=== PATIENT | male | born 1950 | race Caucasian/White ===

== ENCOUNTER 2021-10-16 09:05 | Emergency (ER) | payer MEDICARE ==
[2021-10-16] MEDS ORDERED: Dexamethasone 10 MG/ML VIAL ONE (09:26)
== END 2021-10-16 09:28 | disposition home or self-care (01) ==
LOC: BURERS 09:05
DX: M10.9 Gout, unspecified (principal); I10 Essential (primary) hypertension; Z79.01 Long term (current) use of anticoagulants; Z79.899 Other long term (current) drug therapy
CPT/HCPCS: 96372; 99283; J1100

== ENCOUNTER 2021-10-19 07:34 | Emergency (ER) | payer MEDICARE ==
[2021-10-19] MEDS ORDERED: predniSONE 20 MG TAB ONE (08:39)
== END 2021-10-19 11:17 | disposition home or self-care (01) ==
LOC: BURERS 07:34
DX: M10.9 Gout, unspecified (principal); I10 Essential (primary) hypertension; Z79.899 Other long term (current) drug therapy
CPT/HCPCS: 99283; J7512

== ENCOUNTER 2022-01-13 06:37 | Emergency (ER) | payer MEDICARE ==
[2022-01-13] MEDS ORDERED: predniSONE 20 MG TAB ONE (07:02)
== END 2022-01-13 07:10 | disposition home or self-care (01) ==
LOC: BURERS 06:37
DX: S92.911A Unspecified fracture of right toe(s), initial encounter for closed fracture (principal); S90.31XA Contusion of right foot, initial encounter; M10.9 Gout, unspecified; I10 Essential (primary) hypertension; Z79.01 Long term (current) use of anticoagulants; Z79.899 Other long term (current) drug therapy; W23.0XXA Caught, crushed, jammed, or pinched between moving objects, initial encounter
CPT/HCPCS: 99283; J7512

== ENCOUNTER 2022-03-08 08:35 | Outpatient (CLI) | payer MEDICARE ==
[2022-03-08] MEDS ORDERED: Iopamidol 370 76% 100 ML VIAL FS ONE (08:36)
== END 2022-03-08 08:36 | disposition home or self-care (01) ==
LOC: BURCT 08:35
PROVIDERS: ATTEND Nurse Practitioner Family
DX: I77.9 Disorder of arteries and arterioles, unspecified (principal); K76.0 Fatty (change of) liver, not elsewhere classified; K57.90 Diverticulosis of intestine, part unspecified, without perforation or abscess without bleeding
CPT/HCPCS: 74160; Q9967

== ENCOUNTER 2022-03-10 02:13 | Emergency (ER) | payer MEDICARE ==
[2022-03-10] MEDS ORDERED: HYDROcodone/Acetaminophen 10/325 mg Tablet ONE (02:39)
[2022-03-10] MEDS ORDERED: predniSONE 20 MG TAB ONE (02:58)
== END 2022-03-10 03:00 | disposition home or self-care (01) ==
LOC: BURERS 02:13
DX: M10.9 Gout, unspecified (principal); I10 Essential (primary) hypertension
CPT/HCPCS: J7512

== ENCOUNTER 2022-07-06 14:25 | Emergency (ER) | payer MEDICARE ==
[2022-07-06] MEDS ORDERED: HYDROcodone/Acetaminophen 10/325 mg Tablet ONE (14:53)
== END 2022-07-06 15:05 | disposition home or self-care (01) ==
LOC: BURERS 14:25
DX: M10.9 Gout, unspecified (principal); I10 Essential (primary) hypertension
CPT/HCPCS: 99283

== ENCOUNTER 2022-08-17 12:44 | Emergency (ER) | payer MEDICARE ==
[2022-08-17] MEDS ORDERED: methylPREDNISolone Sod Succ/PF 125 MG/2 ML VIAL ONE (13:17)
== END 2022-08-17 14:45 | disposition home or self-care (01) ==
LOC: BURERS 12:44
DX: J20.9 Acute bronchitis, unspecified (principal); I10 Essential (primary) hypertension; Z79.899 Other long term (current) drug therapy
CPT/HCPCS: 71045; 96372; J2930

== ENCOUNTER 2022-10-04 07:59 | Outpatient (CLI) | payer MEDICARE | END 2022-10-04 08:00 | LOC: BURCT 07:59 | PROVIDERS: ATTEND Nurse Practitioner Family | DX: Z01.818 Encounter for other preprocedural examination (principal); I77.9 Disorder of arteries and arterioles, unspecified; K57.30 Diverticulosis of large intestine without perforation or abscess without bleeding; Z90.49 Acquired absence of other specified parts of digestive tract | CPT/HCPCS: 36415; 74160; 82565 ==

== ENCOUNTER 2022-12-14 11:51 | Emergency (ER) | payer MEDICARE | END 2022-12-14 12:44 | disposition home or self-care (01) | LOC: BURERS 11:51 | DX: J20.9 Acute bronchitis, unspecified (principal); I10 Essential (primary) hypertension | CPT/HCPCS: 99283 ==

== ENCOUNTER 2023-04-25 08:58 | Outpatient (CLI) | payer MEDICARE ==
[2023-04-25] MEDS ORDERED: Iopamidol 370 76% 100 ML VIAL ONE (09:09)
== END 2023-04-25 08:59 | disposition home or self-care (01) ==
LOC: BURCT 08:58
PROVIDERS: ATTEND Nurse Practitioner Family
DX: I77.9 Disorder of arteries and arterioles, unspecified (principal); Z95.828 Presence of other vascular implants and grafts
CPT/HCPCS: 74160; Q9967

== ENCOUNTER 2025-05-07 17:05 | Emergency (ER) | payer MEDICARE ==
[2025-05-07 17:46] LABS: #Basophils 0.1 thou/uL (0.0-0.2); #Eosinophils 0.1 thou/uL (0.0-0.7); #Lymphocytes 3.6 thou/uL (1.20-3.40); #Monocytes 0.7 thou/uL (0.11-0.59); #Neutrophils 7.1 thou/uL (1.40-6.50); %Basophils 0.8 % (0.0-1.0); %Eosinophils 0.8 % (0.0-10.0); %Lymphocytes 30.7 % (21.0-51.0); %Monocytes 6.1 % (0.0-10.0); %Neutrophils 61.6 % (42.0-75.0); Hematocrit 33.7 % (42.0-52.0); Hemoglobin 11.9 g/dL (14.0-18.0); Mean Corpuscular Hemoglobin 30.3 pg (27.0-31.0); Mean Corpuscular Volume 85.7 fl (78.0-98.0); Platelet Count 230 10x3/uL (130-400); Red Blood Cell (RBC) Count 3.93 mill/uL (4.70-6.10); White Blood Cell (WBC) Count 11.5 10x3/uL (4.8-10.8)
[2025-05-07 17:50] LABS: ALT (SGPT) 18 U/L (Less than 45); AST (SGOT) 24 U/L (11-34); Albumin 3.5 g/dL (3.1-4.5); Alkaline Phosphatase 72 U/L (40-110); Anion Gap 19 mmol/L (10-20); BUN (Urea Nitrogen) 14 mg/dL (8.4-25.7); Bilirubin, Total 0.5 mg/dL (0.3-1.2); Calc. Creatinine Clearance 0 mL/min (70-130); Calcium 9.4 mg/dL (7.8-10.44); Carbon Dioxide 18 mmol/L (23-31); Chloride 102 mmol/L (98-107); Globulin 3.0 g/dL (2.4-3.5); Glucose 155 mg/dL (83-110); Potassium 3.7 mmol/L (3.5-5.1); Sodium 135 mmol/L (136-145)
[2025-05-07 17:51] LABS: Troponin I Less than 0.010 ng/mL (< 0.028)
== END 2025-05-07 18:30 | disposition home or self-care (01) ==
LOC: BURERS 17:05
DX: S20.219A Contusion of unspecified front wall of thorax, initial encounter (principal); S50.812A Abrasion of left forearm, initial encounter; S60.512A Abrasion of left hand, initial encounter; M54.2 Cervicalgia; G89.29 Other chronic pain; I10 Essential (primary) hypertension; I48.91 Unspecified atrial fibrillation; V89.2XXA Person injured in unspecified motor-vehicle accident, traffic, initial encounter
CPT/HCPCS: 70450; 71250; 72125; 80053; 84484; 85025; 93005; 96360